=== PATIENT | female | born 1945 | race Caucasian/White ===

== ENCOUNTER 2021-03-30 15:28 | Outpatient (CLI) | payer MEDICARE ==
--- NOTE | 2021-03-30 17:46 | XRAY Report ---
PROCEDURE: Chest 2 View X-Ray INDICATIONS: CONGESTION TECHNIQUE: 2 view(s) of the chest. COMPARISON: None. FINDINGS: Surgical changes and devices: None. Lungs and pleura: No pleural effusions or pneumothorax. Increased opacification in the posterior asp ect of the right lung base. Mediastinum: Mediastinal contours are normal. Heart size is normal. Bones and chest wall: Severe S-shaped scoliosis of the thoracolumbar spine. No suspicious bony abnor malities. Soft tissues appear unremarkable. IMPRESSION: Right lower lobe pneumonia. Reviewed by: Charlotte Singh MD, PhD on 03/30/2021 5:44 PM PST Approved by: Charlotte Singh MD, PhD on 03/30/2021 5:44 PM PST Station ID: [id number]
== END 2021-03-30 23:59 | disposition home or self-care (01) ==
LOC: DI.S 15:28
PROVIDERS: ATTEND Physician Assistant Medical
DX: J18.9 Pneumonia, unspecified organism (principal)

== ENCOUNTER 2021-05-17 08:00 | Outpatient (CLI) | payer MEDICARE ==
--- NOTE | 2021-05-17 17:59 | XRAY Report ---
PROCEDURE: Chest 2 View X-Ray INDICATIONS: ASTHMA EXACERBATION TECHNIQUE: 2 view(s) of the chest. COMPARISON: CXR 03/30/2021. FINDINGS: Surgical changes and devices: Left shoulder ORIF. Lungs and pleura: No pleural effusions or pneumothorax. Hazy opacity at the right lower chest is mor e prominent. Mediastinum: Mediastinal contours appear similar. Heart size is normal. Bones and chest wall: No suspicious bony abnormalities. Severe scoliosis. Soft tissues appear unrem arkable. IMPRESSION: Hazy opacity at the right lower chest is more prominent. This could be due to pneumonia. Atelectasis or distorted overlying chest wall could also be a source of this appearance given the sev ere scoliosis. Reviewed by: Isaias Zarate MD on 05/17/2021 4:58 PM MARINE Approved by: Isaias Zarate MD on 05/17/2021 4:58 PM MARINE Station ID: [id number]
== END 2021-05-17 23:59 | disposition home or self-care (01) ==
LOC: DI.S 08:00
PROVIDERS: ATTEND Physician Assistant
DX: R91.8 Other nonspecific abnormal finding of lung field (principal); J45.901 Unspecified asthma with (acute) exacerbation; Z20.822 Contact with and (suspected) exposure to COVID-19
CPT/HCPCS: 71046; U0004

== ENCOUNTER 2022-06-16 11:52 | Outpatient (CLI) | payer OTHER, MEDICARE ==
--- NOTE | 2022-06-16 18:54 | XRAY Report ---
PROCEDURE: Thoracic Spine 2 View INDICATIONS: CERVICAL,THORAIC,LUMBAR SPRAIN/STRAIN TECHNIQUE: 2 views of the thoracic spine were acquired. COMPARISON: None. FINDINGS: Bones: No obvious fractures or dislocations. No suspicious bony lesions. 12 pairs of ribs are note d, and appear intact where visualized. Severe thoracolumbar S shaped scoliosis limits assessment of vertebral body height Soft tissues: No paravertebral stripe thickening. IMPRESSION: Severe S shaped scoliosis Reviewed by: Nagi Trejo MD on 06/16/2022 5:53 PM AKDT Approved by: Nagi Trejo MD on 06/16/2022 5:53 PM AKDT Station ID: [id number]
--- NOTE | 2022-06-16 19:02 | XRAY Report ---
PROCEDURE: Lumbar Spine 2 View INDICATIONS: CERVICAL, THORACIC AND LUMBAR STRAIN TECHNIQUE: 2 views of the lumbar spine were acquired. COMPARISON: None. FINDINGS: Bones: Severe convex left thoracolumbar scoliosis. No gross fracture or significant malalignment. Soft tissues: Overlying bowel gas pattern is normal. No suspicious soft tissue calcifications. IMPRESSION: Severe thoracolumbar levoscoliosis Reviewed by: Nagi Trejo MD on 06/16/2022 6:01 PM AKSONA Approved by: Nagi Trejo MD on 06/16/2022 6:01 PM AKDT Station ID: [id number]
--- NOTE | 2022-06-16 19:03 | XRAY Report ---
PROCEDURE: Cervical Spine Complete INDICATIONS: CERVICAL SPRAIN TECHNIQUE: 4 views of the cervical spine acquired. COMPARISON: None. FINDINGS: Bones: No fractures or dislocations to the T1 level. Oblique images demonstrate no bony foraminal s tenoses. Mid cervical spine disc space narrowing and hypertrophic facet joints associated with grade 1 anterior spinal listhesis C4-5. Oblique images are malpositioned on the left but show patent rafael tara on the right Soft tissues: No prevertebral soft tissue swelling. 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 No fracture or traumatic malalig nment Reviewed by: Nagi Trejo MD on 06/16/2022 6:02 PM MARINE Approved by: Nagi Trejo MD on 06/16/2022 6:02 PM MARINE Station ID: [id number]
== END 2022-06-16 11:53 | disposition home or self-care (01) ==
LOC: DI.S 11:52
PROVIDERS: ATTEND Chiropractor
DX: S23.3XXA Sprain of ligaments of thoracic spine, initial encounter (principal); S13.4XXA Sprain of ligaments of cervical spine, initial encounter; S33.5XXA Sprain of ligaments of lumbar spine, initial encounter; M47.812 Spondylosis without myelopathy or radiculopathy, cervical region; M50.321 Other cervical disc degeneration at C4-C5 level

== ENCOUNTER 2022-06-23 12:53 | Outpatient (CLI) | payer MEDICARE ==
--- NOTE | 2022-06-23 17:16 | XRAY Report ---
PROCEDURE: Cervical Spine 2 View INDICATIONS: CERVICAL STRAIN TECHNIQUE: 2 view(s) of the cervical spine were acquired. COMPARISON: 06/16/2022 FINDINGS: Bones: A limited range of motion in flexion. No change in grade 1 C4-5 anterolisthesis during flexion or extension. There is trace anterolisthesis of C3-4 in flexion and trace retrolisthesis in extensio n. Moderate disc height loss C3-4 and C4-5 and severe disc height loss C6-7. Soft tissues: No prevertebral soft tissue swelling. Carotid bulb calcifications. IMPRESSION: 1. Stable grade 1 C4-5 anterolisthesis. 2. Mild dynamic instability C3-4. Reviewed by: Nasreen Gaitan MD on 06/23/2022 5:14 PM PDT Approved by: Nasreen Gaitan MD on 06/23/2022 5:14 PM PDT Station ID: [id number]
== END 2022-06-23 12:54 | disposition home or self-care (01) ==
LOC: DI.S 12:53
PROVIDERS: ATTEND Chiropractor
DX: M43.12 Spondylolisthesis, cervical region (principal); M50.31 Other cervical disc degeneration, high cervical region

== ENCOUNTER 2022-08-14 13:17 | Outpatient (CLI) | payer OTHER, MEDICARE ==
--- NOTE | 2022-08-14 15:56 | CT Report ---
PROCEDURE: CERVICAL SPINE WO INDICATIONS: SPRAIN OF LIGAMENTS OF CERVICAL SPINE TECHNIQUE: Noncontrast 3 mm thick sections acquired from the skull base to the T4 level. Sagittal and coronal r eformats were then constructed. For radiation dose reduction, the following was used: automated exp osure control, adjustment of mA and/or kV according to patient size. COMPARISON: None. FINDINGS: Image quality: Excellent. Bones: No fractures or dislocations. Visualized superior ribs are intact. Convex right scoliosis o f the cervical spine. Moderate disc height loss at C3-4, C4-5, C5-6. Mild disc height loss at remaini ng levels. Multilevel facet arthrosis, most prominent at the left side of C2-3, and right side of C2- C7.. Soft tissues: Prevertebral soft tissues are normal in thickness. No paravertebral hematomas. No ap ical pneumothoraces. IMPRESSION: No acute, displaced fracture or traumatic subluxation. Multilevel degenerative disc disease and facet arthrosis, as detailed above. Reviewed by: Charles Rios on 08/14/2022 3:54 PM PDT Approved by: Charles Rios on 08/14/2022 3:54 PM PDT Station ID: [id number]
== END 2022-08-14 13:18 | disposition home or self-care (01) ==
LOC: DI 13:17
PROVIDERS: ATTEND Chiropractor
DX: M50.31 Other cervical disc degeneration, high cervical region (principal); M47.812 Spondylosis without myelopathy or radiculopathy, cervical region

== ENCOUNTER 2022-09-28 09:01 | Day surgery (SDC) | payer MEDICARE ==
[2022-09-28] MEDS: LACTATED RINGERS 1,000 ML IV ONE (09:21)
[2022-09-28] MEDS: PROPARACAINE 0.5% OPHTH DROPS 15 ML ONE (09:30)
[2022-09-28] MEDS: KETOROLAC 0.45% OPHTH DROPS ONE (09:30)
[2022-09-28] MEDS: CYCLOPENTOLATE 1% OPHTH DROPS 2 ML ONE (09:31)
[2022-09-28] MEDS: PHENYLEPHRINE 2.5% OPHTH 2 ML DROPS ONE (09:44)
[2022-09-28] MEDS ORDERED: MIDAZOLAM 2 MG/2 ML VIAL ONE (09:55)
--- NOTE | 2022-09-28 10:00 | ANESTHESIA ---
Pre-Anesthesia VS, & Labs - Diagnosis left eye senile combined cataract - Procedure left eye cataract extraction with IOL implant Vital Signs: Temp Pulse Resp BP Pulse Ox O2 Flow Rate 36.1 C L 75 16 169/77 H 96 09/28/22 09:27 09/28/22 09:27 09/28/22 09:27 09/28/22 09:27 09/28/22 09:27 Height: 5 ft 4 in Weight (kg): 53 kg Body Mass Index: 20.0 BMI Classification: Normal - NPO >8 hours - Is Patient ?: No Home Medications and Allergies Home Medications: Ambulatory Orders Fluticasone/Salmeterol [Advair 100-50 Diskus] 1 inh PO DAILY 09/27/22 amLODIPine [Norvasc] 5 mg PO DAILY 09/27/22 traZODone [Desyrel] 50 mg PO DAILY 09/27/22 Fluticasone/Salmeterol [Advair 100-50 Diskus] 1 inh PO DAILY 09/27/22 amLODIPine [Norvasc] 5 mg PO DAILY 09/27/22 traZODone [Desyrel] 50 mg PO DAILY 09/27/22 Allergies/Adverse Reactions: Allergies Allergy/AdvReac Type Severity Reaction Status Date / Time Penicillins Allergy Rash Verified 09/27/22 13:37 Sulfa (Sulfonamide AdvReac Nausea Verified 09/27/22 13:37 Antibiotics) Anes History & Medical History - Anesthetic History Anesthesia Complications: reports: No previous complications - Medical History Cardiovascular: reports: Hypertension Pulmonary: reports: Asthma, Shortness of breath Gastrointestinal: reports: None Urinary: reports: None Neuro: reports: None Musculoskeletal: reports: Osteoarthritis Endocrine/Autoimmune: reports: None Skin: reports: None Smoking Status: Never smoker Psychosocial: reports: No issues indicated History of Cancer?: No - Surgical History Orthopedic: reports: Other (shoulder and wrist ORIF) Exam General: Alert, Oriented x3, Cooperative, No acute distress Dental: WNL Mouth Openin Fingerbreadth Neck Mobility: Normal Mallampati classification: II Thyromental Distance: 4-6 cm Mental/Cognitive Status: Alert/Oriented X3, Normal for patient Plan Anesthesia Type: MAC Consent for Procedure(s) Verified and Reviewed: Yes Code Status: Attempt Resuscitation ASA classification: 2-Mild systemic disease Is this case an emergency?: No
[2022-09-28] MEDS ORDERED: fentaNYL 100 MCG/2 ML VIAL ONE (10:16)
[2022-09-28] MEDS: BRIMONIDINE 0.2% OPHTH DROPS 5 ML OPTH ONE (10:20)
[2022-09-28] MEDS: EPINEPHrine 1 MG/ML AMP IR ONE (10:21)
[2022-09-28] MEDS: BSS/LIDOCAINE/EPINEPHRINE 1 ML SYRINGE IO ONE (10:21)
[2022-09-28] MEDS: TIMOLOL 0.5% OPHTH DROPS OPTH ONE (10:21)
[2022-09-28] MEDS: PROPARACAINE 0.5% OPHTH DROPS 15 ML LEFTEYE ONE (10:22)
[2022-09-28] MEDS: VANCOMYCIN OPHTH (TOPICAL) 10 MG/ML SYRINGE LEFTEYE ONE (10:22)
[2022-09-28] MEDS: TRIAMCIN/MOXIFLOX OPHTHALMIC 0.6 ML VIAL IO ONE (10:22)
--- NOTE | 2022-09-28 10:28 | OPERATIVE REPORT ---
Operative Report - Other Other Information/Narrative: Date of Surgery: 09/28/22 Preop Dx: Visually significant cataract left eye. This was the first cataract surgery. Postop Dx: Same Procedure: Phacoemulsification with posterior chamber intraocular lens implant left eye Surgeon: Dr. Jaime Graham Anesthesia: Monitored anesthesia care Complications: None Operative Indications: This is a 76-year-old F with progressive vision loss in the left eye due to 2+ nuclear sclerotic, 1-2+ cortical, and 1-2+ posterior subcapsular cataract. Best corrected visual acuity was 20/20 with glare to 20/40 vision in the left eye. Indications for surgery were: - Overall decrease in vision - Difficulty seeing words, closed captions, or game scores on TV - Difficulty seeing street signs - Difficulty driving in low light or at night - Difficulty driving at night because of headlights from other vehicles - Difficulty with glare or bright lights in any situation The patient was consented at length concerning the risks and benefits of cataract surgery after which the patient expressed a desire to proceed with surgery. Operative Procedure: The patient was taken into OR#3 and placed under monitored anesthesia care. A surgical time-out was conducted confirming correct patient, correct procedure, and correct surgical site. The patient was given topical anesthesia and then prepped and draped in the usual sterile fashion. The eye was entered at the 6 and 3 oclock positions. Intracameral Shugarcaine was injected into the anterior chamber followed by a dispersive viscoelastic. A continuous-tear curvilinear capsulorhexis was performed. The nucleus was hydrodissected and phacoemulsified. The cortex was evacuated using automated infusion and aspiration. A cohesive viscoelastic was injected into the capsular bag and a 19.0 diopter intraocular lens was inserted into the bag. Infusion and aspiration were used to evacuate the viscoelastic materials from the eye. The wo unds were hydrated and the eye inflated to physiologic pressure using balanced salt solution. Approximately 0.25ml of a mixture of triamcinolone and moxifloxacin was injected trans-sclerally into the vitreous in the inferotemporal quadrant using a 30 gauge cannula. An additional 0.25ml of a mixture of triamcinolone and moxifloxacin was injected subconjunctivally in the superior quadrant for infection and inflammation prophylaxis. Wound integrity was checked with Weck-Treasure sponges. The patient was taken from the operating room in good condition and given post-op instructions.
[2022-09-28] MEDS: LACTATED RINGERS 750 ML IV ONE (10:29)
[2022-09-28 10:31] VITALS: BP 138/65
--- NOTE | 2022-09-29 14:10 | ANESTHESIA POST OP EVALUATION ---
Anesthesia Post Eval - Post Anesthesia Eval Vitals: Last Vital Signs Temp 36.3 C L 09/28/22 10:30 Pulse 83 09/28/22 10:30 Resp 16 09/28/22 10:30 BP 138/65 H 09/28/22 10:30 Pulse Ox 96 09/28/22 10:30 O2 Flow Rate CV Function Including HR & BP: Stable Pain Control: Satisfactory Nausea & Vomiting: Negative Mental Status: Baseline Respiratory Status: Airway Patent Hydration Status: Satisfactory Anesthesia Complications: None
== END 2022-09-28 09:02 | disposition home or self-care (01) ==
LOC: SDS 09:01
PROVIDERS: ATTEND Ophthalmology
DX: H25.812 Combined forms of age-related cataract, left eye (principal); I10 Essential (primary) hypertension; J45.909 Unspecified asthma, uncomplicated

== ENCOUNTER 2023-08-27 08:00 | Outpatient (CLI) | payer MEDICARE ==
--- NOTE | 2023-08-27 14:04 | XRAY Report ---
PROCEDURE: Chest 2V INDICATIONS: CHEST CONGESTION TECHNIQUE: 2 views of the chest were acquired. COMPARISON: 09/08/2021. FINDINGS: Surgical changes and devices: Left proximal humeral hardware.. Lungs and pleura: No pleural effusions or pneumothorax. Lungs are clear. Mediastinum: Mediastinal contours appear normal. Heart size is normal. Bones and chest wall: No suspicious bony lesions. Significant S-shaped scoliotic curvature. Overlyin g soft tissues appear unremarkable. IMPRESSION: No acute cardiopulmonary process. Reviewed by: Henry De La Cruz MD on 08/27/2023 2:02 PM PDT Approved by: Henry De La Cruz MD on 08/27/2023 2:02 PM PDT Station ID: [id number]
== END 2023-08-27 23:59 | disposition home or self-care (01) ==
LOC: DI.S 08:00
PROVIDERS: ATTEND Physician Assistant Medical
DX: R09.89 Other specified symptoms and signs involving the circulatory and respiratory systems (principal); J02.9 Acute pharyngitis, unspecified
CPT/HCPCS: 87070

== ENCOUNTER 2023-11-27 08:00 | Outpatient (CLI) | payer MEDICARE | END 2023-11-27 23:59 | disposition home or self-care (01) | LOC: LAB.S 08:00 | PROVIDERS: ATTEND Physician Assistant | DX: J06.9 Acute upper respiratory infection, unspecified (principal) ==